=== PATIENT | male | born 1945 | race Caucasian/White ===

== ENCOUNTER 2025-03-03 12:38 | Outpatient (CLI) | payer MEDICARE | END 2025-03-03 12:39 | disposition home or self-care (01) | LOC: CSHULT 12:38 | PROVIDERS: ATTEND Student in an Organized Health Care Education/Training Program | DX: R01.1 Cardiac murmur, unspecified (principal); I49.1 Atrial premature depolarization; I70.0 Atherosclerosis of aorta; I35.0 Nonrheumatic aortic (valve) stenosis; I08.0 Rheumatic disorders of both mitral and aortic valves | CPT/HCPCS: 93306 ==